=== PATIENT | female | born 1950 | race Caucasian/White ===

== ENCOUNTER 2016-08-07 19:57 | Emergency (ER) | payer OTHER ==
[2016-08-07 21:47] LABS: HEMOGLOBIN 12.1 gm/dl (12.3-15.3); RED BLOOD COUNT 4.69 M/UL (4.00-5.10); WHITE BLOOD COUNT 16.2 K/UL (4.5-11.0)
[2016-08-07 22:08] LABS: BUN/CREATININE RATIO 24 (0-10)
== END 2016-08-08 00:40 | disposition home or self-care (01) ==
LOC: ER1 19:57
PROVIDERS: Physician Assistant
DX: S20.211A Contusion of right front wall of thorax, initial encounter (principal); S80.01XA Contusion of right knee, initial encounter; R00.0 Tachycardia, unspecified; Z88.0 Allergy status to penicillin; Z91.040 Latex allergy status; V43.62XA Car passenger injured in collision with other type car in traffic accident, initial encounter
CPT/HCPCS: 36415; 70450; 71010; 71260; 72125; 73564; 80053; 81001; 82550; 82553; 83874; 84484; 85025; 85610; 85730; 93005; 96360; 96361; 99284; J7050; Q9962